=== PATIENT | female | born 1970 | race African-American/Black ===

== ENCOUNTER 2017-04-24 03:01 | Emergency (ER) | payer MEDICAID, OTHER ==
[~2017-04-24] VITALS: Ht 175.3 cm; Wt 82.0 kg
[2017-04-24 04:17] LABS: BASOPHILS % 1.1 % (0.0-2.0); EOSINOPHILS % 3.6 % (0.0-5.0); HEMOGLOBIN. 14.3 g/dL (12.0-16.0); LYMPHOCYTES % 44.1 % (20.0-50.0); MEAN CORPUSCULAR HEMOGLOBIN 29.4 pg (28.0-32.0); MEAN CORPUSCULAR VOLUME 88.6 fL (81.0-99.0); MEAN PLATELET VOLUME 7.7 fl (7.4-10.4); MONOCYTES % 8.3 % (2.0-8.0); NEUTROPHILS % 42.9 % (40.0-76.0); PLATELET 277 x1000/uL (130-400); RED BLOOD CELL COUNT 4.85 mill/uL (4.2-5.4); RED CELL DISTRIBUTION WIDTH 12.9 % (11.6-14.6)
[2017-04-24 04:28] LABS: CARBON DIOXIDE 26 mEq/L (21-32); CHLORIDE 109 mEq/L (98-107)
[2017-04-24 06:24] VITALS: BP 135/96
== END 2017-04-24 06:26 | disposition home or self-care (01) ==
LOC: ER 03:01
DX: M94.0 Chondrocostal junction syndrome [Tietze] (principal); I10 Essential (primary) hypertension; F17.200 Nicotine dependence, unspecified, uncomplicated
CPT/HCPCS: 36415; 71045; 80053; 85025; 85379; 93005; 99285